=== PATIENT | female | born 1985 | race Caucasian/White ===

== ENCOUNTER 2019-04-08 16:32 | Emergency (ER) | payer SELFPAY ==
[2019-04-08 16:46] VITALS: BP 117/85
--- NOTE | 2019-04-08 17:18 | UC ---
FLU HPI - HPI Summary HPI Summary: started with sore throat and feeling warm late today no other symptoms, also sick (flu neg) and she is afraid she has the flu did not have flu vaccine this year - History of Current Complaint Chief Complaint: UCGeneralIllness Stated Complaint: FLU LIKE SYMPTOMS Time Seen by Provider: 04/08/19 16:38 Hx Obtained From: Patient Onset/Duration: Sudden Onset Severity Currently: None Severity Initially: Mild Pain Intensity: 1 Associated Signs & Symptoms: Positive: Negative - Allergy/Home Medications Allergies/Adverse Reactions: Allergies Allergy/AdvReac Type Severity Reaction Status Date / Time No Known Allergies Allergy Verified 04/08/19 16:47 Home Medications: Home Medications Vit37/Iron/Folic Acid [Prenata] 1 chw PO DAILY 04/08/19 [History Confirmed 04/08/19] PMH/Surg Hx/FS Hx/Imm Hx Previously Healthy: Yes - Surgical History Surgical History: Yes Surgery Procedure, Year, and Place: left elbow - Family History Known Family History: Positive: None - Social History Occupation: Employed Full-time Lives: With Family Alcohol Use: None Substance Use Type: None Smoking Status (MU): Never Smoked Tobacco Review of Systems All Other Systems Reviewed And Are Negative: Yes Constitutional: Positive: Fever Skin: Positive: Negative Eyes: Positive: Negative ENT: Positive: Sore Throat Respiratory: Positive: Negative. Negative: Cough Cardiovascular: Positive: Negative Gastrointestinal: Positive: Negative Musculoskeletal: Positive: Negative Neurological: Positive: Negative Psychological: Positive: Negative Is Patient Immunocompromised?: No Physical Exam Triage Information Reviewed: Yes Appearance: Well-Appearing, No Pain Distress, Well-Nourished Vital Signs: Initial Vital Signs Temp 99.0 F 04/08/19 16:41 Pulse 92 04/08/19 16:41 Resp 16 04/08/19 16:41 BP 117/85 04/08/19 16:41 Pulse Ox 100 04/08/19 16:41 Eye Exam: Normal ENT Exam: Normal ENT: Negative: Pharyngeal erythema, Nasal congestion Neck exam: Normal Neck: Positive: No Lymphadenopathy Respiratory Exam: Normal Respiratory: Positive: Lungs clear Cardiovascular Exam: Normal Cardiovascular: Positive: RRR Musculoskeletal Exam: Normal Neurological Exam: Normal Psychological Exam: Normal Skin Exam: Normal Skin: Negative: Rashes Flu Course/Dx - Differential Dx/Diagnosis Differential Diagnosis/HQI/PQRI: Influenza, Upper Respiratory Infection Provider Diagnosis: Upper respiratory infection Discharge ED - Sign-Out/Discharge Documenting (check all that apply): Patient Departure All imaging exams completed and their final reports reviewed: No Studies - Discharge Plan Condition: Good Disposition: HOME Patient Education Materials: Upper Respiratory Infection (ED) Referrals: No Primary Care Phys,NOPCP [Primary Care Provider] - Additional Instructions: drink plenty of fluids and rest use Tylenol or ibuprofen for fever and pain return here if symptoms worsen - Billing Disposition and Condition Condition: GOOD Disposition: Home
[2019-04-08 17:35] LABS: Influenza A Molecular NEGATIVE (Negative); Influenza B Molecular NEGATIVE (Negative)
== END 2019-04-08 17:45 | disposition home or self-care (01) ==
LOC: UCEAST 16:32
DX: J06.9 Acute upper respiratory infection, unspecified (principal)
CPT/HCPCS: 99201; G0463